=== PATIENT | female | born 1990 | race Caucasian/White ===

== ENCOUNTER 2017-10-19 18:15 | Inpatient (IN) | payer MEDICAID ==
[2017-10-19 19:15] VITALS: BMI 27.4
[2017-10-19] MEDS ORDERED: Measles, Mumps, and Rubella 0.5 ML VIAL SC ONE (19:34)
[2017-10-19] MEDS ORDERED: Tdap Vaccine 0.5 ml Vial (10-64 yrs) IM ONE (19:34)
[2017-10-19] MEDS ORDERED: Varicella Virus Vaccine Inj SUBCUT ONE (19:34)
[2017-10-19] MEDS ORDERED: Oxytocin 30 UNIT 30 UNITS/500 ML BAG IV SCH (19:45)
[2017-10-19 19:47] LABS: HEMOGLOBIN 13.9 g/dL (11.0-16.0); MEAN CELL VOLUME 90.5 fL (81.0-99.0); MEAN CORPUSCULAR HEMOGLOBIN 31.9 pg (27.0-31.0); MEAN CORPUSCULAR HGB CONC 35.3 g/dL (33.0-37.0); MEAN PLATELET VOLUME 8.5 fL (7.2-11.7); RBC 4.36 Mil/uL (3.80-5.20); RED CELL DISTRIBUTION WIDTH 14.2 % (11.5-14.5); WHITE BLOOD COUNT 10.6 K/uL (4.8-10.8)
[2017-10-19 20:02] LABS: ALBUMIN 3.7 g/dL (3.5-5.0); AST/SGOT 20 U/L (14-36); BLOOD UREA NITROGEN 8 mg/dL (7-17); GFR AFRICAN-AMERICAN > 60; GFR NON-AFRICAN AMERICAN > 60
[2017-10-19] MEDS ORDERED: Phenylephrine 10 mg/ml Inj ONE (20:04)
[2017-10-19] MEDS ORDERED: ePHEDrine 50 mg/ml Inj ONE (20:04)
[2017-10-19 20:11] LABS: ALT/SGPT < 6 U/L (9-52)
[2017-10-19] MEDS ORDERED: Oxytocin 10 Units/ml Inj ONE (20:15)
[2017-10-19 20:32] LABS: HEPATITIS B SURFACE AG Negative (NEGATIVE)
--- NOTE | 2017-10-19 20:55 | OBHP ---
Datetime: 10/19/2017 20:41 IP Adm Impression: Term, intrauterine IP Admit Plan: Admit to unit Admit Comment, IP Provider: Pt is 27 @ 40 1/7 by LMP January 11. Pt presented to L_D by EMS with contractions. Pt was checked and found to be completely dilated, bulging bag and zero station. [place] find anyone that would accept her for care. Sh e has not had care during this POBHx: 1) x 2, Stillbirth x 1 PGYNHx: no hx of STDs PMHx: none PSHx: none ROS: ENT: negative. Resp: negative. CVS : negative /GI: negative Musc: negative Ext: negative. A/P: 27 presented to L_D in active labor 1) Admit to L_D 2) Vaginal delivery. Pelvic Type - PN: Adequate Extremities - PN: Normal Abdomen - PN: Normal Back - PN: Normal Breast - PN: Normal Lungs - PN: Normal Heart - PN: Normal Thyroid - PN: Normal Neurologic - PN: Normal HEENT - PN: Normal General - PN: Normal IP Hx Assessment: No Care IP Chief Complaint: Uterine contractions Dilatation, Provider: 10 Effacement, Provider: 100 Station, Provider: 0 Genitourinary Exam: Normal DTRs - PN: Normal Datetime: 10/19/2017 20:35 Amniotic Fluid Color, Provider: Clear Membranes, Provider: Bulging Comments, ACOG Physical Exam: SVE: complete/100/0 Gestation - Est Wks by US: 40 1/7 Vital Signs Provider: Reviewed
[2017-10-19 21:02] LABS: MEAN CELL VOLUME 90.5 fL (81.0-99.0); MEAN CORPUSCULAR HEMOGLOBIN 31.9 pg (27.0-31.0); MEAN CORPUSCULAR HGB CONC 35.3 g/dL (33.0-37.0); MEAN PLATELET VOLUME 8.6 fL (7.2-11.7); RBC 3.34 Mil/uL (3.80-5.20); RED CELL DISTRIBUTION WIDTH 13.8 % (11.5-14.5); WHITE BLOOD COUNT 11.1 K/uL (4.8-10.8)
[2017-10-19 21:04] LABS: HEMOGLOBIN 10.7 g/dL (11.0-16.0)
--- NOTE | 2017-10-19 21:22 | OBDS ---
DELIVERY PERSONNEL Delivery Doctor: Anthony Mc MD MATERNAL INFORMATION Delivery Anesthesia: None Estimated Blood Loss (ml): 800 Placenta Cultured: Yes Maternal Complications: Precipitous Labor (<3hrs); Hemorrhage Provider Comments: Pt spontaneously ruptured with thick meconium. The pt pushed and the head d elivered. Loose Nuchal cord x 1 reduced. The anterior shoulder and posterior shoulder delivered witho ut difficulty. The cord was cut clamped and fetus handed to awaiting peds. The placenta was expressed and removed intact. There were first degree perineal lacerations on the right and left labia. 10cc o f local lidocaine was placed on the left labia and 2.0 vicryl was used to suture the left labia After the vaginal delivery, pt was noted to have PPH after the delivery. The pt was taken to the O R and prepped and draped in the usual manner for PPH. The weighted speculum was placed on the posteri or vagina. The right angle retractor was placed on the anterior vagina. The cervix was inspected for any cervical tears none noted. Bimanual exam was performed at the uterus was noted to be firm. The [facility] curette was used to performed gentle curettage until the uterus was felt to be gritty. Methergine 0.25Im was given as well as pitocin IV. The bleeding stopped after the curettage and the administrat ion of methergine. All sponge needle and instrument count was correct at the end of the procedure. LABOR SUMMARY EDC: 10/19/2017 00:00 No. Babies in Womb: 1 Attempted: No Labor Anesthesia: None LABOR INFORMATION Reason for Induction: Not Applicable Complete Dilatation: 10/19/2017 16:20 Oxytocin: N/A Group B Beta Strep: Not Done Antibiotics # of Doses: 0 Antibiotics Time of Last Dose: N/A Steroids Given: None Reason Steroids Not Administered: Not Applicable MEMBRANES Membranes Rupture Method: Spontaneous Rupture of Membranes: 10/19/2017 18:24 Length of Rupture (hrs): 0.02 Amniotic Fluid Color: Heavy Meconium Amniotic Fluid Amount: Moderate Amniotic Fluid Odor: Normal STAGES OF LABOR Stage 2 hrs: 2 Stage 2 min: 5 Stage 3 hrs: 0 Stage 3 min: 5 VAGINAL DELIVERY Episiotomy: None Laceration Extension: First Degree Laceration Type: Periurethral Other Laceration: 1st degree Left periureathral Laceration Repair: Yes Laceration Repair Note: left and right benjamin-urethral lacerations noted. 2.0 vicryl suture placed on the left benjamin-urethral lacteratin. Initial Vag Sponge Count: 10 Final Vag Sponge Count: 15 Initial Vag Sharps Count: 0 Final Vag Sharps Count: 1 Sponge Count Correct: Yes Sharps Count Correct: Yes Count Comment: Mary Patrick RN preformed vaginal delivery instrument, laps _ sharps count with Dr. Mc . Count on laps _ sharps was double checked prior to Mary Patrick RN opening a new pack of laps and thr owing away the original 10. BABY A INFORMATION Delivery Date/Time: 10/19/2017 18:25 Method of Delivery: Vaginal Born in Route : No : N/A Forceps: N/A Vacuum Extraction: N/A Shoulder Dystocia : No SHOULDER DYSTOCIA BABY A Infant Delivery Date/Time: 10/19/2017 18:25 PRESENTATION/POSITION BABY A Presentation: Cephalic Cephalic Presentation: Vertex Vertex Position: Left Occipital Anterior Breech Presentation: N/A PLACENTA INFORMATION BABY A Placenta Delivery Time : 10/19/2017 18:30 Placenta Method of Delivery: Expressed Placenta Status: Delivered SCORES BABY A Heart Rate 1 min: >100 bpm Resp Effort 1 min: Good Cry Reflex Irritability 1 min: Cough or Sneeze or Pulls Away Muscle Tone 1 min: Active Motion Color 1 min: Body [place], Extremities Blue Resuscitation Effort 1 min: Tactile Stimulation SCORE 1 MIN: 9 Heart Rate 5 min: >100 bpm Resp Effort 5 min: Good Cry Reflex Irritability 5 min: Cough or Sneeze or Pulls Away Muscle Tone 5 min: Active Motion Color 5 min: Body [place], Extremities Blue SCORE 5 MIN: 9 INFANT INFORMATION BABY A Gestational Age at Delivery: 40.0 Gestational Status: Post-term Outcome : Liveborn Condition : Stable Infant Sex: Female IDENTIFICATION/MEDS BABY A ID Band Number: [id number] ID Band Location: Left Leg; Left Arm Sensor Applied: Yes Sensor Number: [id number] Sensor Location : Cord Clamp WEIGHT/LENGTH BABY A Birthweight (gms): 3995 Infant Weight (lb): 8 Weight (oz): 13 Infant Length Inches: 20.00 Length cms: 50.8 CORD INFORMATION BABY A No. Cord Vessels: 3 Nuchal Cord : N/A Cord Blood Taken: Yes Infant Suction: Mouth ASSESSMENT BABY A Complications: None
[2017-10-20] MEDS: Oxycodone/Acetaminophen 5/325 mg Tab PO PRN ×3 (01:57→18:06)
[2017-10-20] MEDS ORDERED: Tdap Vaccine 0.5 ml Vial (10-64 yrs) IM ONE (10:00)
[2017-10-20] MEDS ORDERED: Measles, Mumps, and Rubella 0.5 ML VIAL SC ONE (10:00)
--- NOTE | 2017-10-20 10:00 | CP.PCM.PN ---
Subjective - Date & Time of Evaluation Date of Evaluation: 10/20/17 Time of Evaluation: 09:58 - Subjective Subjective: PPD #1 Pt doing well. Lochia moderate. No complaints today. Objective - Vital Signs/Intake and Output Vital Signs (last 24 hours): Temp Pulse Resp BP Pulse Ox 99.6 F 84 20 116/73 98 10/20/17 01:14 10/20/17 01:14 10/20/17 01:14 10/20/17 01:14 10/20/17 01:14 - Medications Medications: Current Medications Acetaminophen (Tylenol 325mg Tab) 650 mg PO Q6 PRN PRN Reason: Pain, Mild (1-3) Stop: 10/22/17 23:59 Last Admin: 10/20/17 01:05 Dose: 650 mg Docusate Sodium (Colace) 100 mg PO BID IVANNA Ferrous Sulfate (Feosol) 325 mg PO DAILY IVANNA Oxytocin (Pitocin 20 Units In Lr) 1,000 mls @ 125 mls/hr IV .Q8H IVANNA PRN Reason: Protocol Oxycodone/Acetaminophen (Percocet 5/325 Mg Tab) 1 tab PO Q4H PRN PRN Reason: Pain, moderate (4-7) Stop: 10/23/17 01:19 Last Admin: 10/20/17 01:57 Dose: 1 tab Tetanus/Reduced Diphtheria/Acell Pertussis (Adacel (10-64 Yrs)) 0.5 ml IM .ONCE ONE Stop: 10/20/17 10:01 - Labs Labs: 10/19/17 20:59 10/19/17 19:40 - Constitutional Appears: Well - Additional Findings Additional findings: ABD: Soft, Nt, Uterus firm below umbilicus EXT: NO calf tenderness
--- NOTE | 2017-10-20 12:56 | OBPPN ---
Datetime: 10/20/2017 12:52 PP Pain Prov: Within normal limits PP Nausea Prov: Denies PP Flatus Prov: Yes PP Breasts Prov: Not Done PP Heart Prov: Not Done PP Lungs Prov: Not Done PP Abdomen/Uterus Prov: Normal PP Lochia Prov: Normal PP Vulva/Perineum Prov: Not Done PP CVA Tenderness Prov: Not Done PP Extremities Prov: Normal PP Comments Phys Exam Prov: ABD: Soft, NT, Uterus firm below umbilicus PP Impression Prov: Normal progression PP Plan Prov: Continue present management PP Progress Note Prov: PPD #1 Pt doing well No PNC Continue care IP PP Procedures: None Vital Signs Provider PP: Reviewed; Within Normal Limits
[2017-10-20 18:12] VITALS: RESP 20
[2017-10-21] MEDS: Oxycodone/Acetaminophen 5/325 mg Tab PO PRN (01:06)
--- NOTE | 2017-10-21 08:00 | OBPPN ---
Datetime: 10/21/2017 07:59 PP Pain Prov: Within normal limits PP Nausea Prov: Denies PP Flatus Prov: Yes PP BM Prov: No PP Breasts Prov: Normal PP Heart Prov: Normal PP Lungs Prov: Normal PP Abdomen/Uterus Prov: Normal PP Lochia Prov: Normal PP Vulva/Perineum Prov: Normal PP CVA Tenderness Prov: Normal PP Extremities Prov: Normal PP C/S Incision Prov: Not Applicable PP Progress Prov: Normal PP Impression Prov: Normal progression PP Plan Prov: Continue present management PP Progress Note Prov: Pt seen and examien rocco hartley pain controleld with medicain. pt ambulting, voiidng, passing flatus, tolerated diet, breast feeding, dneis any fever, chills, nasue, vomiting, a nd dneis any sadness or depression. VSS PE GEN NAD, AAO x 3 BREAST: NT, NOn engorged b/l RESP: CTAB/l CVS: RRR, +S1/S2 ABD: soft, NT, ND, +BS, no guarding, no rebound tenderness, no rigidity FUNDUS: firm, below level of umbilcus VE: Minimal lochai, non foul smelling EXT: negative homans' sign A/P s/p NSDV PPD#2 doing well no prentral care f/u soical work consult dc home pendign sw RTO 6 weeks precatuions given IP PP Procedures: None Vital Signs Provider PP: Reviewed; Within Normal Limits Datetime: 10/20/2017 12:52 Vital Signs Provider Details PP: Pt had no PNC PP hemorrhage S/P D_C for hemorrhage
--- NOTE | 2017-10-21 08:02 | OBDCSUM ---
Datetime: 10/21/2017 08:00 Discharged to, Provider: Home Follow up at, Provider: Clinic Disch Instr Activity: Normal activity Disch Instr Diet: Regular Discharge Instructions, Provider: Routine instructions given Discharge Diagnosis, Provider: Term Delivered Discharge Time: 10/21/2017 08:00 Follow up in weeks, Provider: 6 weeks Disch Referrals: None Contraception discussed, Prov: Yes Disch Activity Restrictions: No sexual activity; Nothing in vagina - [place], tampons, douche Discharge Comment, Provider: precautions given if heavy bleeding more than 2 pads/ hour, lightheadness, dizzynses, CP, SOB Contraception after Delivery: Not Planning to Use
[2017-10-21 08:17] VITALS: BP 113/70; TEMP 98
[2017-10-21 17:29] VITALS: PULSE 100; O2SAT 99
== END 2017-10-21 13:00 | disposition home or self-care (01) | DRG 375 ==
LOC: C.EROB 18:15 → C.4D 19:14 → C.4M 10-20
PROVIDERS: ADMIT Obstetrics & Gynecology; ATTEND Obstetrics & Gynecology
PROC: 10E0XZZ Delivery of Products of Conception, External Approach (ICD-10-PCS; principal; 2017-10-19)
PROC: 0W3R0ZZ Control Bleeding in Genitourinary Tract, Open Approach (ICD-10-PCS; 2017-10-19)
PROC: 0HQ9XZZ Repair Perineum Skin, External Approach (ICD-10-PCS; 2017-10-19)
DX: O62.3 Precipitate labor (principal); O72.1 Other immediate postpartum hemorrhage; O69.81X0 Labor and delivery complicated by cord around neck, without compression, not applicable or unspecified; O70.0 First degree perineal laceration during delivery; O71.82 Other specified trauma to perineum and vulva; O77.0 Labor and delivery complicated by meconium in amniotic fluid; Z37.0 Single live birth; Z3A.40 40 weeks gestation of pregnancy

== ENCOUNTER 2018-10-14 10:45 | Emergency (ER) | payer MEDICAID ==
[2017-11-22 13:13] VITALS: BMI 27.4
[2018-10-14 12:14] VITALS: RESP 18
[2018-10-14] MEDS ORDERED: Sodium Chloride 0.9% 1,000 ML IV ONE (12:26)
[2018-10-14 12:38] LABS: BASO # 0.1 K/uL (0.0-0.2); BASO % 0.6 % (0.0-2.0); EOS # 0.1 K/uL (0.0-0.7); EOS % 0.5 % (0.0-4.0); LYMPH # 1.5 K/uL (1.0-4.3); LYMPH % 14.3 % (20.0-40.0); MEAN CELL VOLUME 89.8 fL (81.0-99.0); MEAN CORPUSCULAR HGB CONC 34.5 g/dL (33.0-37.0); MEAN PLATELET VOLUME 8.5 fL (7.2-11.7); MONO # 0.8 K/uL (0.0-0.8); MONO % 7.5 % (0.0-10.0); NEUT # 8.2 K/uL (1.8-7.0); NEUT % 77.1 % (50.0-75.0); RBC 3.88 Mil/uL (3.80-5.20); RED CELL DISTRIBUTION WIDTH 14.2 % (11.5-14.5); WHITE BLOOD COUNT 10.6 K/uL (4.8-10.8)
[2018-10-14] MEDS ORDERED: Albuterol-Ipratrop 3 mg / 0.5 (3 ml) UD ONE (12:40)
[2018-10-14] MEDS ORDERED: Sodium Chloride 0.9% 1,000 ML ONE (12:47)
[2018-10-14 12:49] LABS: ALB/GLOB RATIO 1.1 (1.0-2.1); ALBUMIN 3.8 g/dL (3.5-5.0); ALT/SGPT 66 U/L (9-52); AST/SGOT 163 U/L (14-36); BLOOD UREA NITROGEN 11 mg/dL (7-17); GFR NON-AFRICAN AMERICAN > 60; LIPASE 72 U/L (23-300)
--- NOTE | 2018-10-14 14:05 | US ---
Date of service: 10/14/2018 HISTORY: RUQ abd pain COMPARISON: None. TECHNIQUE: Sonographic evaluation of the right upper quadrant of the abdomen. FINDINGS: LIVER: Liver is mildly enlarged measuring nearly 19 cm in CC dimension. Liver exhibits smooth contour though increased echotexture likely due to fatty infiltration however other infiltrative hepatic cellular disease process not excluded. No evidence of abdominal ascites. Hepatic and portal veins appear patent. Main portal vein exhibits hepatopetal flow. GALLBLADDER: Intraluminal gallbladder calculi. No evidence of sonographic Daigle sign COMMON BILE DUCT: Measures 5.7 mm. No stones. No dilatation. PANCREAS: The visualized portions of the pancreas appear grossly unremarkable. Note however that the distal pancreatic body and tail poorly delineated on this exam due to body habitus and bowel gas. RIGHT KIDNEY: Measures 12.5 x 5.0 x 4.7 cm in length. Normal echogenicity. No calculus, mass, or hydronephrosis. AORTA: No aneurysmal dilatation. IVC: Unremarkable. OTHER FINDINGS: None . IMPRESSION: Cholelithiasis. No evidence sonographic Daigle sign. Findings suggest fatty infiltration however other infiltrative hepatocellular disease process not excluded.
--- NOTE | 2018-10-14 14:34 | C.PDOC ---
History Of Present Illness 28 year old female () was sent to the ED by Labor&Delivery for evaluation of right upper quadrant pain and epigastric pain associated with nausea. Reports she is Christianity and she has been fasting but today she ate cheese. She describes pain as colicky, intermittent, waxing and waning, and rates it 10/10. Denies any fever, chills, vaginal bleeding, lower abdominal pain, vaginal discharge, chest pain, back pain, or any other symptoms. Patient was cleared by OB and sent to the ED. Time Seen by Provider: 10/14/18 12:04 Chief Complaint (Nursing): Abdominal Pain History Per: Patient History/Exam Limitations: no limitations Onset/Duration Of Symptoms: Days Current Symptoms Are (Timing): Still Present Pain Scale Rating Of: 10 Location Of Pain/Discomfort: RUQ, Epigastric Radiation Of Pain To:: None Associated Symptoms: Nausea. denies: Fever, Chills, Vomiting, Diarrhea, Back Pain, Chest Pain, Urinary Symptoms Past Medical History Reviewed: Historical Data, Nursing Documentation, Vital Signs Vital Signs: Last Vital Signs Temp 98.4 F 10/14/18 12:12 Pulse 99 H 10/14/18 12:12 Resp 18 10/14/18 12:12 BP 118/70 10/14/18 12:12 Pulse Ox 97 10/14/18 12:12 Primary Care Provider: Paty Mcbride - Medical History PMH: No Chronic Diseases Denies: Depression, Diabetes, HTN Surgical History: Appendectomy - [facility] Procedures CONTROL BLEEDING IN GENITOURINARY TRACT, OPEN APPROACH (10/19/17) DELIVERY OF PRODUCTS OF CONCEPTION, EXTERNAL APPROACH (10/19/17) REPAIR PERINEUM SKIN, EXTERNAL APPROACH (10/19/17) Family History: States: No Known Family Hx - Social History Hx Alcohol Use: No Hx Substance Use: No - Immunization History Hx Tetanus Toxoid Vaccination: No Hx Influenza Vaccination: No Hx Pneumococcal Vaccination: No Review Of Systems Except As Marked, All Systems Reviewed And Found Negative. Constitutional: Negative for: Fever, Chills Cardiovascular: Negative for: Chest Pain Respiratory: Negative for: Shortness of Breath Gastrointestinal: Positive for: Nausea, Abdominal Pain. Negative for: Vomiting, Diarrhea Genitourinary: Negative for: Dysuria, Hematuria, Vaginal Discharge, Vaginal Bleeding Musculoskeletal: Negative for: Back Pain Physical Exam - Physical Exam Appears: Non-toxic, Other (afebrile, in pain ) Skin: Warm, Dry, Diaphoretic, Other (flushed ) Head: Normacephalic Eye(s): bilateral: Normal Inspection, PERRL, EOMI Nose: Normal Oral Mucosa: Moist Neck: Supple Chest: Symmetrical Cardiovascular: Rhythm Regular, Other (mild tachycardia) Respiratory: Normal Breath Sounds, No Rales, No Rhonchi, No Wheezing Gastrointestinal/Abdominal: Soft, Tenderness (RUQ and epigastric tenderness), No Distention, Guarding, No Rebound, Other (Gravid, obese ) Back: No CVA Tenderness Extremity: Pedal Edema (mild pitting edema to lower extremities ) Neurological/Psych: Oriented x3, Normal Speech Gait: Steady ED Course And Treatment - Laboratory Results Result Diagrams: 10/14/18 12:33 10/14/18 12:33 Lab Results: Total Bilirubin 0.9 mg/dL (0.2-1.3) 10/14/18 12:33 AST 163 U/L (14-36) H D 10/14/18 12:33 ALT 66 U/L (9-52) H D 10/14/18 12:33 Alkaline Phosphatase 94 U/L (38-126) 10/14/18 12:33 Total Protein 7.1 g/dL (6.3-8.3) 10/14/18 12:33 Albumin 3.8 g/dL (3.5-5.0) 10/14/18 12:33 Globulin 3.3 gm/dL (2.2-3.9) 10/14/18 12:33 Albumin/Globulin Ratio 1.1 (1.0-2.1) 10/14/18 12:33 Lipase 72 U/L (23-300) 10/14/18 12:33 O2 Sat by Pulse Oximetry: 97 (RA) Pulse Ox Interpretation: Normal - CT Scan/US US abd Other Rad Studies (CT/US): Read By Radiologist, Radiology Report Reviewed CT/US Interpretation: Accession No. : [id number]. Patient Name / ID : KAYLEE Franklin / [id number]. Exam Date : 10/14/2018 13:20:54 ( Approved ). Study Comment : Sex / Age : F / 28Y. Creator : Alfred Wright MD. Dictator : Alfred Wright MD. Coding Director : Technical Aide : Alfred Wright MD. Approver2 : Report Date : 10/14/2018 14:02:07. My Comment : . Date of service: 10/14/2018. HISTORY: RUQ abd pain. COMPARISON: None. TECHNIQUE: Sonographic evaluation of the right upper quadrant of the abdomen. FINDINGS: LIVER: Liver is mildly enlarged measuring nearly 19 cm in CC dimension. Liver exhibits smooth contour though increased echotexture likely due to fatty infiltration however other infiltrative hepatic cellular disease process not excluded. No evidence of abdominal ascites. Hepatic and portal veins appear patent. Main portal vein exhibits hepatopetal flow. GALLBLADDER: Intraluminal gallbladder calculi. No evidence of sonographic Daigle sign. COMMON BILE DUCT: Measures 5.7 mm. No stones. No dilatation. PANCREAS: The visualized portions of the pancreas appear grossly unremarkable. Note however that the distal pancreatic body and tail poorly delineated on this exam due to body habitus and bowel gas. RIGHT KIDNEY: Measures 12.5 x 5.0 x 4.7 cm in length. Normal echogenicity. No calculus, mass, or hydronephrosis. AORTA: No aneurysmal dilatation. IVC: Unremarkable. OTHER FINDINGS: None . IMPRESSION: Cholelithiasis. No evidence sonographic Daigle sign. Findings suggest fatty infiltration however other infiltrative hepatocellular disease process not excluded. Medical Decision Making Medical Decision Making: Differentials - Cholelithiasis versus Cholecystitis versus Gastritis Plan - Bloodwork - Morphine 1mg PO - UA - US abdomen US shows Cholelithiasis but no Cholecystitis. UA shows likely UTI. Will treat for UTI, although patient is asymptomatic. On reevaluation, patient feels better. Patient evaluated by regional vice president life sales. Instructed patient to follow up with Dr. Israel as needed. Disposition Counseled Patient/Family Regarding: Studies Performed, Diagnosis, Need For Followup, Rx Given - Disposition Referrals: Juan Israel MD [Staff Provider] - Disposition: HOME/ ROUTINE Disposition Time: 16:25 Condition: STABLE Prescriptions: Nitrofurantoin Monohyd/M-Cryst [Macrobid 100 mg Capsule] 100 mg PO BID #14 capsule Instructions: Urinary Tract Infection, Adult (DC), Gallstones (DC) Forms: [facility] ([place]), General Discharge Instructions - POA Present On Arrival: None - Clinical Impression Clinical Impression: UTI in , Gall bladder stones - Scribe Statement The provider has reviewed the documentation as recorded by the Scribgibran Aparicio All medical record entries made by the Laurenibgibran were at my direction and personally dictated by me. I have reviewed the chart and agree that the record accurately reflects my personal performance of the history, physical exam, medical decision making, and the department course for this patient. I have also personally directed, reviewed, and agree with the discharge instructions and disposition.
[2018-10-14 14:48] LABS: SQUAMOUS EPITHIAL 40 /hpf (0-5); URINE BACTERIA FEW (<OCC); URINE BILIRUBIN NEGATIVE (NEGATIVE); URINE BLOOD 1+ (NEGATIVE); URINE CLARITY Hazy (Clear); URINE COLOR Yellow (YELLOW); URINE GLUCOSE (UA) NORMAL (Normal); URINE LEUKOCYTE ESTERASE 3+ Leu/uL (Negative); URINE PROTEIN NEGATIVE (NEGATIVE)
--- NOTE | 2018-10-14 16:18 | CP.PCM.CON ---
History of Present Illness - History of Present Illness History of Present Illness: Surgery:DR. Israel Reason for consult: RUQ pain, gallstones, 22wk EGA HPI: Patient is a 28 y/o female who presents complain of epigastric abdominal pain that started last night while she was sleeping. She states the pain was severe in nature and took a couple house to subside. She reports having pain similar in the past about 1 month ago however the pain resolved on its own. She denies pain worsening with certain food types. She denies n/v/f/c, diarrhea constipation. She denies vaginal bleeding or urinary symptoms. She was evaluated in L&D and was cleared to ER for further work up. ED course: US + gallstone, +UTI on urinalysis PMH: , no related illness PSH: open appendectomy Social: denies toxic habits Fam hx; noncontributory Review of Systems - Review of Systems All systems: reviewed and no additional remarkable complaints except Review of Systems: unless stated in HPI - Constitutional Constitutional: absent: Anorexia, Chills, Fever - EENT Eyes: absent: Blind Spots, Blurred Vision Ears: absent: Decreased Hearing Nose/Mouth/Throat: absent: Nasal Congestion - Cardiovascular Cardiovascular: absent: Chest Pain, Dyspnea - Respiratory Respiratory: absent: Cough, Wheezing - Gastrointestinal Gastrointestinal: Abdominal Pain. absent: Bloating, Constipation, Cramping, Diarrhea, Hematochezia, Nausea, Vomiting - Genitourinary Genitourinary: absent: Hematuria, Pyuria - Musculoskeletal Musculoskeletal: Back Pain. absent: Tingling - Integumentary Integumentary: absent: Alopecia, Lesions - Neurological Neurological: absent: Behavioral Changes, Dizziness - Psychiatric Psychiatric: absent: Anxiety, Change in Appetite - Endocrine Endocrine: absent: Polyphagia, Polyuria - Hematologic/Lymphatic Hematologic: absent: Easy Bleeding, Lymphadenopathy Past Patient History - Past Social History Smoking Status: Never Smoked - CARDIAC Hx Hypertension: No - PSYCHIATRIC Hx Depression: No Hx Substance Use: No - SURGICAL HISTORY Hx Appendectomy: Yes - ANESTHESIA Hx Anesthesia: Yes Hx Anesthesia Reactions: No Meds Allergies/Adverse Reactions: Allergies Allergy/AdvReac Type Severity Reaction Status Date / Time No Known Allergies Allergy Verified 10/19/17 19:17 Physical Exam - Constitutional Appears: Well, Non-toxic, No Acute Distress - Head Exam Head Exam: ATRAUMATIC, NORMOCEPHALIC - Eye Exam Eye Exam: EOMI, Normal appearance - ENT Exam ENT Exam: Mucous Membranes Moist - Respiratory Exam Respiratory Exam: NORMAL BREATHING PATTERN. absent: Respiratory Distress - Cardiovascular Exam Cardiovascular Exam: REGULAR RHYTHM. absent: Tachycardia - GI/Abdominal Exam GI & Abdominal Exam: Soft. absent: Distended, Guarding, Hernia, Rebound, Rigid, Tenderness Additional comments: 20wk uterus , well healed RLQ Mcburney's incision - Extremities Exam Extremities exam: Negative for: calf tenderness - Neurological Exam Neurological exam: Alert, Oriented x3 - Psychiatric Exam Psychiatric exam: Normal Affect, Normal Mood - Skin Skin Exam: Dry, Normal Color, Warm Results - Vital Signs Recent Vital Signs: Last Vital Signs Temp 99.4 F 10/14/18 15:01 Pulse 99 H 10/14/18 12:12 Resp 18 10/14/18 12:12 BP 118/70 10/14/18 12:12 Pulse Ox 97 10/14/18 14:44 - Labs Result Diagrams: 10/14/18 12:33 10/14/18 12:33 Labs: Laboratory Results - last 24 hr 10/14/18 10/14/18 10/14/18 12:33 12:33 14:32 WBC 10.6 RBC 3.88 Hgb 12.0 Hct 34.8 MCV 89.8 MCH 31.0 MCHC 34.5 RDW 14.2 Plt Count 265 MPV 8.5 Neut % (Auto) 77.1 H Lymph % (Auto) 14.3 L [place] % (Auto) 7.5 Eos % (Auto) 0.5 Baso % (Auto) 0.6 Neut # (Auto) 8.2 H Lymph # (Auto) 1.5 [place] # (Auto) 0.8 Eos # (Auto) 0.1 Baso # (Auto) 0.1 Differential Comment Sodium 139 Potassium 3.5 L Chloride 106 Carbon Dioxide 21 L Anion Gap 16 BUN 11 Creatinine 0.3 L Est GFR ( Amer) > 60 Est GFR (Non-Af Amer) > 60 Random Glucose 113 H D Calcium 9.0 Total Bilirubin 0.9 AST 163 H D ALT 66 H D Alkaline Phosphatase 94 Total Protein 7.1 Albumin 3.8 Globulin 3.3 Albumin/Globulin Ratio 1.1 Lipase 72 Urine Color Yellow Urine Clarity Hazy Urine pH 6.0 Ur Specific [place] 1.009 Urine Protein Negative Urine Glucose (UA) Normal Urine Ketones Negative Urine Blood 1+ H Urine Nitrate Negative Urine Bilirubin Negative Urine Urobilinogen 4.0 H Ur Leukocyte Esterase 3+ H Urine WBC (Auto) 11 H Urine RBC (Auto) 9 H Ur Squamous Epith Cells 40 H Urine Bacteria Few H - Imaging and Cardiology US - abdomen Status: Image reviewed by me, Report reviewed by me Additional comment: + stones small, clear cystic duct, no wall thickening or edema Assessment & Plan - Assessment and Plan (Free Text) Assessment: 28 y/o female w/ abdominal pain, cholelithiasis in absence of cholecystitis, and urinary tract infection Plan: -pain multifactorial in nature, gallstones vs gastritis vs UTI -clinically benign exam -recommend avoidance of fatty foods -abx for UTI -f/u post for elective surgery planning of gallbladder -return if symptoms worsen -d/w Dr. Jhonatan BULLcecil PGY4
[2018-10-14 17:02] VITALS: BP 126/81; PULSE 81; TEMP 98.1; O2SAT 100
== END 2018-10-14 17:02 | disposition home or self-care (01) ==
LOC: C.ER 10:45 → C.EROB 10:45 → C.ER 17:02
DX: O23.42 Unspecified infection of urinary tract in pregnancy, second trimester (principal); O99.611 Diseases of the digestive system complicating pregnancy, first trimester; K80.20 Calculus of gallbladder without cholecystitis without obstruction; Z3A.22 22 weeks gestation of pregnancy
CPT/HCPCS: 76705; 80053; 81001; 83690; 85025; 96361; 96374; 99284; J2270; J7030